=== PATIENT | male | born 1960 | race Caucasian/White ===

== ENCOUNTER 2018-01-17 18:44 | Emergency (ER) | payer MEDICAID ==
[~2018-01-17] VITALS: Ht 170.2 cm; Wt 68.2 kg
[2018-01-17 19:36] VITALS: BP 170/97
== END 2018-01-17 23:10 | disposition left against medical advice (07) ==
LOC: ER 22:56
DX: R10.9 Unspecified abdominal pain (principal); Z53.21 Procedure and treatment not carried out due to patient leaving prior to being seen by health care provider

== ENCOUNTER 2018-07-15 23:55 | Emergency (ER) | payer MEDICAID ==
[~2018-07-15] VITALS: Ht 172.7 cm; Wt 67.0 kg
[2018-07-16 07:13] VITALS: BP 130/81
== END 2018-07-16 07:17 | disposition home or self-care (01) ==
LOC: ER 23:55
DX: H93.13 Tinnitus, bilateral (principal); I10 Essential (primary) hypertension
CPT/HCPCS: 99283

== ENCOUNTER 2019-04-15 23:55 | Emergency (ER) | payer MEDICAID ==
[~2019-04-15] VITALS: Ht 172.7 cm; Wt 70.0 kg
[2019-04-16 01:51] LABS: BASOPHILS % 0.3 % (0.0-2.0); HEMATOCRIT. 49.3 % (42.0-52.0); HEMOGLOBIN. 17.1 g/dL (14.0-18.0); LYMPHOCYTES % 23.2 % (20.0-50.0); MEAN CORPUSCULAR HEMOGLOBIN 31.7 pg (28.0-32.0); MEAN CORPUSCULAR VOLUME 91.1 fL (80.0-94.0); MONOCYTES % 13.3 % (2.0-8.0); NEUTROPHILS % 60.2 % (40.0-76.0); PLATELET 144 x1000/uL (130-400); RED BLOOD CELL COUNT 5.41 mill/uL (4.7-6.1); RED CELL DISTRIBUTION WIDTH 12.7 % (11.6-14.6)
[2019-04-16 01:56] LABS: CHLORIDE 100 mEq/L (98-107)
[2019-04-16 02:01] LABS: ETHANOL BLOOD < 10 mg/dL
[2019-04-16 03:00] VITALS: BP 112/75
== END 2019-04-16 03:00 | disposition home or self-care (01) ==
LOC: ER 23:55
DX: I10 Essential (primary) hypertension (principal); F41.9 Anxiety disorder, unspecified; R07.89 Other chest pain; Z87.891 Personal history of nicotine dependence
CPT/HCPCS: 36415; 71045; 80053; 80320; 83880; 84484; 85025; 93005; 99284; G0480

== ENCOUNTER 2022-08-10 19:16 | Emergency (ER) | payer MEDICAID ==
[~2022-08-10] VITALS: Ht 175.3 cm; Wt 70.0 kg
[2022-08-10 19:34] VITALS: BP 132/81
== END 2022-08-10 21:30 | disposition left against medical advice (07) ==
LOC: ER 19:16
DX: Z53.21 Procedure and treatment not carried out due to patient leaving prior to being seen by health care provider (principal)
CPT/HCPCS: 99281